=== PATIENT | female | born 1975 | race Caucasian/White ===

== ENCOUNTER 2018-11-14 17:53 | Emergency (ER) | payer BC, SELFPAY ==
[2018-11-14 17:56] VITALS: PULSE 88; RESP 18; TEMP 36.5; O2SAT 100
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
--- NOTE | 2018-11-14 18:08 | ED.GENADUL_ITS ---
Discharge Plan Disposition Patient Disposition: HOME Condition: Stable Discharge Details Chief Complaint: Orthopedic Clinical Impression: Closed fracture of phalanx of right middle finger Primary Care Provider: Luana Vasquez ED Provider: Bro Carias Home Meds and New Rx's Prescriptions: No Action ibuprofen [Advil] 200 mg Tablet 400 mg PO QID PRNRF: 0 Discharge Instructions Instructions: Finger Fracture (ED) Additional Instructions: call orthopedics in the morning for an appointment you can take 1000mg tylenol and 600mg ibuprofen every 6 hours for pain as needed Referrals: Cale Brysno MD [ [facility] STAFF PHYSICIAN] - Medical Decision Making 43 yo female comes in with right middle finger pain after she was tossing wood yesterday morning she was full swing when her right middle finger was crushed between a log and house. No fall or oher injury. Still has distal right finger pain so came here. No wrist pain even on palpation and rom and has full rom of all fingers in extension and flexion even in middle fingers. Suspect contusion, will xray to eval for fx xray on my read shows distal finger fx, if vrad agrees will place in splint and have her f/u with ortho Differential Diagnosis contusion, sprain, fx Imaging Data Radiologic Study: Attestation: I personally reviewed and interpreted this imaging study as follows: Imaging: X-Ray My impression: distal fx HPI General Mode of arrival: ambulatory . Date/Time Provider Initiated Documentation: 11/14/18 17:54 . Limitations to Documentation: no limitations . Information obtained by: patient . History of Present Illness 43 year old F presents to the emergency department with the chief complaint of right middle finger pain, described as moderate, with intensity rated at 4. Quality is described as aching, and is localized to the right and upper extremity. Patient reports no radiation. Patient started experiencing this day(s) (1) and it has been constant. No relieving factors improve symptom(s), Other factors that worsen symptoms (palpation) . Patient notes no other symptoms.. Patient did receive the following treatments prior to arrival, NSAID Related Data Home Medications Medication Instructions Recorded Confirmed ibuprofen [Advil] 400 mg PO QID PRN 11/14/18 11/14/18 Allergies Allergy/AdvReac Type Severity Reaction Status Date / Time No Known Allergies Allergy Unverified 11/14/18 18:05 Review of Systems Review of Systems All systems reviewed & are unremarkable except as noted in HPI and below Constitutional Denies chills, Denies fever(s) and Denies weakness ENT Denies change in voice Cardiovascular Denies chest pain and Denies dyspnea Respiratory Denies dyspnea Gastrointestinal Denies abdominal pain, Denies nausea and Denies vomiting Musculoskeletal Denies joint swelling Neurologic Denies weakness [facility] Medical History Acute pelvic pain Tobacco use disorder Surgical History section Ligation of fallopian tube Social History Smoking/Tobacco Use Status: Current every day Exam Const General: no acute distress Orientation: alert HENMT Head: normal to inspection Ears: external ears normal General nose exam: external nose normal Mouth: moist mucous membranes Eyes General: appearance normal, both eyes and all related structures Neck Neck: normal visual inspection Resp Effort & Inspection: normal respiratory effort and able to speak in complete sentences Cardio Rate: regular rate Skin General skin exam: no rashes or lesions noted Neuro General: alert and oriented x3 Extrem General: full ROM and normal capillary refill Psych Mental Status: mental status grossly normal
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
--- NOTE | 2018-11-14 18:35 | NUR.NOTE ---
patient fitted with aluminum finger splint Nursing Note:
== END 2018-11-14 18:40 | disposition home or self-care (01) ==
LOC: ER 18:38
PROVIDERS: Emergency Provider Emergency Medicine
DX: S62.662A Nondisplaced fracture of distal phalanx of right middle finger, initial encounter for closed fracture (principal); W23.0XXA Caught, crushed, jammed, or pinched between moving objects, initial encounter
CPT/HCPCS: 26750; 73140

== ENCOUNTER 2019-01-20 10:14 | Emergency (ER) | payer BC, SELFPAY ==
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
== END 2019-01-20 12:14 | disposition home or self-care (01) ==
PROVIDERS: Emergency Provider Physician Assistant
DX: S61.215A Laceration without foreign body of left ring finger without damage to nail, initial encounter (principal); W26.8XXA Contact with other sharp object(s), not elsewhere classified, initial encounter
CPT/HCPCS: 12002; 90471

== ENCOUNTER 2021-12-21 15:46 | Outpatient (REF) | payer MEDICAID, SELFPAY ==
--- NOTE | 2021-12-21 15:30 | PAPFT_PTH ---
PATIENT: Fátima Montelongo LOC: NCN #:[id number] AGE/SX: 46/F ROOM: RE12/21/[address]: Lisa Jewell : 1975 BED: DIS: 12/21/2021 SPEC #: [id number] RECD: 12/22/21 12:45 STATUS: BROCK REQ #: [id number] LEILA: 12/21/21 15:[address]: Lisa Jewell DEPT: [facility] Cytology RECD BY: Janie Lopez ENTERED: 12/22/21 12:45 SP TYPE: PAPFT OTHR DR: Luana Vasquez Tissues: 1 - CX/ENDOCX FOR PAP SMEARS Procedures: PAP THIN PREP/UVM Screening HPV DNA PROBE Comments: [id number] (CHLAMYDIA/GC)
[2021-12-21 20:59] LABS: Calculated LDL 111 mg/dL (<100); Cholesterol 223 mg/dL (<200); HDL Cholesterol 96 mg/dL (40-60); Triglyceride 83 mg/dL (<150)
[2021-12-22 18:29] LABS: HIV-1/2 Ag & Ab Screen Negative (Negative)
[2021-12-23 15:01] LABS: Chlamydia Result Negative (Negative); GC Result Negative (Negative)
== END 2021-12-21 15:47 | disposition home or self-care (01) ==
LOC: NCHCN 15:46
PROVIDERS: Visit Provider Registered Nurse
DX: Z11.4 Encounter for screening for human immunodeficiency virus [HIV] (principal); Z13.220 Encounter for screening for lipoid disorders; Z12.4 Encounter for screening for malignant neoplasm of cervix; Z11.51 Encounter for screening for human papillomavirus (HPV)
CPT/HCPCS: 80061; 87389; 87491; 87591; 88142; 87624

== ENCOUNTER 2025-01-24 04:13 | Emergency (ER) | payer MEDICAID, SELFPAY ==
[2025-01-24] VITALS (45 sets, daily range): BP systolic 106–126; BP diastolic 64–86; PULSE 65–91; RESP 11–24; TEMP 36.8; O2SAT 95–100
--- NOTE | 2025-01-24 04:00 | RT.EKG_ITS ---
APPROVED REPORT Exam: Resting ECG Reason for Exam: chest pain Patient Location: E HR:73 bpm ECG Measurements Heart Rate 73 AXIS SD 173 P -4 QRSd 70 QRS 75 QT 398 T 63 QTc 438 Conclusion Sinus rhythm...normal P axis, V-rate 60- 99 Normal Electrocardiogram
--- NOTE | 2025-01-24 04:12 | ED.GENADUL_ITS ---
Discharge Plan Discharge Details Chief Complaint: Chest Pain Clinical Impression: RUQ abdominal pain Primary Care Provider: Unknown,Unknown ED Provider: Santos Pepe and New Rx's Prescriptions: No Action ibuprofen [Advil] 200 mg Tablet 400 mg PO QID PRN [facility] General Mode of arrival: EMS . Date/Time Provider Initiated Documentation: 01/24/25 04:18 . Limitations to Documentation: no limitations . Information obtained by: patient and RN notes reviewed . HPI Narrative: Patient presents to ED after waking up with abdominal discomfort. She does not really describe it as pain or nausea. She got up to go to the bathroom and had a small bowel movement but did not really feel better. As she was walking around she felt worse and then did develop some real pain and difficulty taking a breath because of pain. Never really felt short of breath. Began to feel tightness across her upper abdomen and into her chest. No real back pain. Never developed nausea or vomiting. Recently getting over flulike illness with just residual cough. She vapes and has a history of smoking but no significant past medical history and no family history of cardiac disease at a young age. She has no leg pain or leg swelling. She is on no medications on a regular basis. Related Data Home Medications ?Medication ?Instructions ?Recorded ?Confirmed ibuprofen 200 mg tablet (Advil) 400 mg PO QID PRN 11/14/18 01/24/25 Allergies Allergy/AdvReac Type Severity Reaction Status Date / Time No Known Allergies Allergy Unverified 01/24/25 04:18 General PENG: 4 Exam Narrative Exam Narrative: Const: WDWN female in NAD. VS per triage. HEENT: NC/AT. Normal facial exam. Neck: Supple. Trachea midline. Lungs: Normal respiratory effort. Lungs are clear. Cor: RRR without murmur. Good radial pulses. GI: Soft/ND. Some tenderness and voluntary guarding in RUQ. No Cabrera's Neuro: A+O x 3. Normal speech, mentation, gait. Cranial nerves II - XII grossly intact. No gross motor or sensory deficit. Ext: No C/C/E. Medical Decision Making Patient presenting to ED with upper abdominal discomfort with some chest tightness. She is tender in the right upper quadrant and her presentation is more consistent with gallbladder disease than cardiac. Her EKG is normal per my read. This could be atypical presentation for cardiac so will check troponin. History not consistent with PE, she is low risk and subsequently PERCs out. No need for chest imaging. Will reevaluate after laboratory studies have returned and decide whether right upper quadrant ultrasound is necessary. Patient's laboratory studies are reassuring. Her white count is normal. Chemistries, liver function, lipase are normal. Initial troponin less than 4 repeat is 8. Will plan a 3-hour troponin but again this does not seem cardiac. On repeat abdominal exam continues to have right upper quadrant tenderness with some voluntary guarding and now an equivocal Cabrera sign. Patient complaining of some increased nausea. Will give IV ondansetron. Will order right upper quadrant ultrasound to evaluate for potential acute cholecystitis. Patient will be signed out to oncoming ED physician this morning. Lab Data Lab results reviewed: Yes I reviewed the patient's lab results. Lab results narrative: see MDM ECG Data Attestation: I personally reviewed and interpreted this ECG (s) as follows: PFSH All Active Problems RUQ abdominal pain (Acute) Tobacco use (Acute 11/21/13) Medical History Raynauds disease Surgical History Ligation of fallopian tube 2011 BTL at time of C/S section Social History Smoking/Tobacco Use Status: Current every day Tobacco Type: e-cigarettes Smoking risk assessment performed?: Yes Alcohol Intake: current Alcohol Intake frequency: a few times a month Drug use: Rarely Substance use type: does not use Do you feel safe in your relationship?: Yes
[2025-01-24 04:33] LABS: Absolute Basophil Count 0.06 10^3/uL (0.0-0.2); Absolute Eosinophil Count 0.18 10^3/uL (0.0-0.7); Absolute Lymphocyte Count 2.51 10^3/uL (1.2-3.4); Absolute Neutrophil Count 3.41 10^3/uL (1.2-6.7); Basophils % 0.9 %; Eosinophils % 2.6 %; HCT 40.2 % (36.0-46.0); HGB 12.9 g/dL (11.2-15.7); Immature Grans % 1.5 %; Lymphocytes % 36.6 %; MCH 28.4 pg (27.0-33.0); MCHC 32.1 % (32.0-36.0); MCV 88 fL (80-95); MPV 8.3 fL (8.0-11.0); Monocytes % 8.7 %; Neutrophils % 49.7 %; Platelet Count 433 10^3/uL (130-400); RBC 4.55 10^6/uL (3.93-5.22); RDW 11.8 % (11.7-14.6); WBC 6.86 10^3/uL (4.4-10.8)
[2025-01-24] MEDS: Ketorolac 30 MG/ML VIAL IVP (04:39)
[2025-01-24 04:50] LABS: ALT 22 U/L (14-59); AST 24 U/L (15-37); Albumin 3.3 g/dL (3.4-5.0); Alkaline Phosphatase 107 U/L (46-116); Anion Gap 5.2 mmol/L (3-11); BUN 14 mg/dL (7-18); Bilirubin, Total 0.17 mg/dL (0.2-1.0); CO2 28.8 mmol/L (21.0-32.0); CREATININE 0.9 mg/dL (0.55-1.02); Calcium 9.3 mg/dL (8.5-10.1); Chloride 106 mmol/L (98-107); Estimated GFR 79.35 (mL/min/1.73m2); Glucose 96 mg/dL (74-106); Lipase 49 U/L (<78); Magnesium 1.8 mg/dL (1.8-2.4); Potassium 3.7 mmol/L (3.5-5.1); Sodium 140 mmol/L (136-145); Total Protein 8.1 g/dL (6.4-8.2)
[2025-01-24 04:54] LABS: Troponin I < 4 ng/L (<or=51)
[2025-01-24 06:00] LABS: Troponin I 8 ng/L (<or=51)
--- NOTE | 2025-01-24 06:15 | DI.US_ITS ---
Exam(s) US ABDOMEN EXAM: US ABDOMEN CLINICAL HISTORY: RUQ pain/tenderness TECHNIQUE: Ultrasound abdomen performed using standard protocol. COMPARISON: No exams were available for comparison FINDINGS: LIVER: Normal size and echogenicity. No focal liver lesions are seen. GALLBLADDER: No evidence of cholelithiasis. Question of a small amount of sludge versus artifact. N o evidence of wall thickening. No pericholecystic fluid identified. EVANS'S SIGN: Negative. BILIARY SYSTEM: No intrahepatic or extrahepatic biliary ductal dilation. KIDNEYS: Kidneys are symmetric in size. No evidence of renal calculi. No evidence of hydronephrosis. Question of a parapelvic cyst versus prominent renal pelvis of the left kidney. Left kidney is somew hat obscured by bowel gas. PANCREAS: Normal where visualized. SPLEEN: Not enlarged. ABDOMINAL AORTA AND IVC: Visualized portions normal caliber. ASCITES: None seen. IMPRESSION: Question of a small amount gallbladder sludge versus artifact. No gallbladder wall thickening or per icholecystic fluid. No biliary dilatation. DATA REPOSITORY:
--- NOTE | 2025-01-24 07:09 | W.EDPROG ---
Date of service: 01/24/25 Time of Service: 07:10 Medical Decision Making I received signout on this 49-year-old female who presented with abdominal discomfort. She is pending a third troponin and right upper quadrant ultrasound this morning. 10:28 AM Patient had reassuring troponins in the ED. She had a formal right abdominal ultrasound which did not show any signs of acute cholecystitis. She did have a left renal cyst. I advised her of this cyst and recommended PCP follow-up. We discussed that she should return to the emergency department if she could not eat or drink she developed fevers worsening abdominal pain or had any other concerns. She understood her return indications and is discharged with empiric trial of expectant outpatient management. Final read on the ultrasound showed that the left kidney has either a small simple parapelvic cyst or a prominent renal pelvis. Patient did also have some nodularity to the contour of her liver noted on ultrasound. She had normal reassuring LFTs. She had normal lipase. Quality:SDOH Health Related Social Needs: No Data to Display Discharge Plan Disposition Patient Disposition: Home Discharge Details Clinical Impression: RUQ abdominal pain Primary Care Provider: Unknown,Unknown ED Provider: Win Ambrose Home Meds and New Rx's Prescriptions: Continued ibuprofen [Advil] 200 mg Tablet 400 mg PO QID PRN Discharge Instructions Additional Instructions: You are seen in the emergency department for your abdominal pain. Your ultrasound showed no sign of an infection in your gallbladder. There was concerns that you had a cyst on your left kidney. Please follow-up with your primary care provider concerning this incidental finding. Please return to the emergency department as we discussed if you develop nausea vomiting worsening abdominal pain or if you have any other concerns.
[2025-01-24 07:46] LABS: Troponin I < 4 ng/L (<or=51)
--- NOTE | 2025-01-24 11:41 | DI.VRAD_ITS ---
PROCEDURE INFORMATION: Exam: US Abdomen Complete Exam date and time: 01/24/2025 10:06 AM Age: 49 years old Clinical indication: Other: Ruq/epigastric abd pain TECHNIQUE: Imaging protocol: Real-time ultrasound of the abdomen with image documentation. Complete exam. COMPARISON: No relevant prior studies available. FINDINGS: Liver: Questionable nodular liver contour. Normal echogenicity. The liver measures 17.4 cm in length. No mass identified. Patent main portal vein with normal flow direction. Gallbladder: Artifact versus gallbladder sludge. No gallbladder wall thickening or pericholecystic fluid. Sonographic Cabrera's sign is negative. Biliary ducts: Normal. No stones. No dilation. Pancreas: Visualized pancreas is unremarkable. Right kidney: The right kidney measures 9.5 cm in length. Normal cortical echogenicity. No hydronephrosis. No shadowing stones or mass identified. Left kidney: The left kidney measures 9.5 cm in length. Normal cortical echogenicity. Small simple parapelvic cyst versus prominent renal pelvis with assessment limited by overlying shadowing bowel gas. No shadowing stones identified. Spleen: Normal. No splenomegaly. Aorta: Normal. No aneurysm. Inferior vena cava: Normal. IMPRESSION: 1. No acute findings. 2. Questionable nodular liver contour which could be artifactual or reflect changes of cirrhosis. Dictated and Authenticated by: Horace Nguyễn MD. Orderin Afshin Graham MD
== END 2025-01-24 11:37 | disposition home or self-care (01) ==
PROVIDERS: Emergency Medicine; Emergency Provider Emergency Medicine
DX: R10.11 Right upper quadrant pain (principal); N28.1 Cyst of kidney, acquired
CPT/HCPCS: 00123; 36415; 80053; 81025; 83690; 93005; 96374; 99285; 76700; 83735; 84484; 85025; 93010; 99283; J1885

== ENCOUNTER 2025-04-24 14:07 | Outpatient (REF) | payer MEDICAID, SELFPAY ==
[2025-04-24 15:27] LABS: HCT 41.2 % (36.0-46.0); HGB 13.1 g/dL (11.2-15.7); MCH 28.2 pg (27.0-33.0); MCHC 31.8 % (32.0-36.0); MCV 89 fL (80-95); MPV 9.9 fL (8.0-11.0); Platelet Count 244 10^3/uL (130-400); RBC 4.65 10^6/uL (3.93-5.22); RDW 12.6 % (11.7-14.6); RDW-SD 40.6 fL
[2025-04-24 15:57] LABS: Iron 61 ug/dL (50-170)
[2025-04-24 16:09] LABS: ALT 24 U/L (14-59); AST 28 U/L (15-37); Albumin 3.9 g/dL (3.4-5.0); Alkaline Phosphatase 87 U/L (46-116); Anion Gap 5.5 mmol/L (3-11); BUN 12 mg/dL (7-18); Bilirubin, Total 0.2 mg/dL (0.2-1.0); CO2 30.5 mmol/L (21.0-32.0); CREATININE 0.6 mg/dL (0.55-1.02); Calcium 9.3 mg/dL (8.5-10.1); Calculated LDL 114 mg/dL (<100); Chloride 102 mmol/L (98-107); Cholesterol 201 mg/dL (<200); Estimated GFR 111.34 (mL/min/1.73m2); Glucose 92 mg/dL (74-106); HDL Cholesterol 74 mg/dL (>or=50); Potassium 4.4 mmol/L (3.5-5.1); Sodium 138 mmol/L (136-145); TSH 2.23 uIU/mL (0.36-3.74); Total Protein 8.7 g/dL (6.4-8.2); Triglyceride 69 mg/dL (<150)
[2025-04-24 16:40] LABS: FREE T4 0.93 ng/dL (0.76-1.46)
== END 2025-04-24 14:08 | disposition home or self-care (01) ==
LOC: NCHCN 14:07
PROVIDERS: PCP Physician Assistant; Visit Provider Physician Assistant
DX: R53.83 Other fatigue (principal)
CPT/HCPCS: 80053; 80061; 85027; 83540; 84439; 84443

== ENCOUNTER 2025-08-21 06:48 | Day surgery (SDC) | payer MEDICAID, SELFPAY ==
--- NOTE | 2025-08-20 15:49 | PDOC.DSDIS_ITS ---
Date of service: 08/21/25 Discharge Plan Disposition Patient Disposition: Home Condition: Good Discharge Details Reason For Visit: Screening colonoscopy Attending Provider: Amadou Reid Primary Care Provider: Alfredo Grier Home Meds and New Rx's Prescriptions: Continued multivitamin Tablet 1 tab PO DAILY Discontinued bisacodyl [Dulcolax (bisacodyl)] 5 mg tablet,delayed release (DR/EC) 5 mg PO ONCE Qty: 4 0RF Rx Instructions: Take per colonoscopy instructions provided by ordering providers office polyethylene glycol 3350 17 gram/dose powder 17 g PO ONCE Qty: 238 0RF Rx Instructions: Take per colonoscopy instructions provided by ordering providers office Discharge Instructions Instructions: Colon polyps Additional Instructions: Fátima, was great meeting you today, and hope you feel well after the procedure. Things went very smoothly. I did find, and remove 1 small bit of tissue today that I suspect may be a polyp. This will be sent to the pathologist for them to review. 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 Otherwise everything else was normal. The results from the polyp report will take about a week or 2 to get back, but once my office has that information we will be in touch. If you need anything in the meantime, please do not hesitate to ask at any point. 1. If tolerated, consume a soft, low fiber diet for 1-2 days. 2. Do not drive, drink alcohol, operate machinery, make critical decisions, or do activities that require coordination or balance for 24 hours. 3. Because air was put into your colon during the procedure, expelling air from your rectum (passing gas or farting) is normal. 4. You may not have a bowel movement for 1-3 days because of the colonoscopy prep. This is normal. 5. Go directly to the emergency room if you notice any of the following: Develop chills (warm to touch), or if you have a thermometer and your temperature is above 101 Difficulty breathing or difficultly swallowing Persistent vomiting Severe abdominal pain, other than gas cramps Severe chest pain Black, tarry stools Any bleeding ? exceeding one tablespoon 6. Call your physician if the site where your intravenous was started becomes red, swollen, painful, and warm to touch. 7. Your physician has reviewed your pre-procedure medications. Please continue to take those medications as previously ordered. You will be given specific information/education regarding any changes to your medications before leaving. Stand Alone Forms: Anesthesia Discharge Inst., Colonoscopy Post Instructions, Magda Ford (DSU) Activity:: Activity as Tolerated Diet:: As Tolerated Discharge Orders Discharge Orders: Discharge Order (Routine); Ordered 08/20/25 Ordered By: Amadou Reid DS: Diagnosis Discharge Diagnosis (1) Encounter for screening colonoscopy: Status: Acute Asessment and Plan: Follow-up on polypectomy results
--- NOTE | 2025-08-20 15:50 | COLE_ITS ---
Date of service: 08/21/25 Time of Service: 08:41 Colonoscopy Report Date of procedure: 08/21/25 Pre-op diagnosis general: Screening colonoscopy Post-op diagnosis procedure note: other (Cecal polyp) Procedure: Colonoscopy with polypectomy Surgeon: Amadou Reid Anesthesia Type: General:No Airway Estimated blood loss (mL): 5 Pathology: other (0.25 cm flat cecal polyp) Complications: None Disposition: same day Indications: Fátima is a 50-year-old woman who needs a screening colonoscopy Prep: Miralax/Dulcolax Procedure Start Time: 08:20 Procedure End Time: 08:34 Retraction Time: 8 Findings: 0.25 cm flat cecal polyp Procedure Description: After the induction of monitored anesthetic care, and with the patient in left lateral decubitus position, I began by performing an external anorectal exam.? There are some perianal skin tags consistent with old hemorrhoids. Otherwise, the perineum and anal verge were normal. Next, I performed a digital rectal exam.? I did not appreciate any abnormal findings.? Next, I advanced a colono scope into the rectal vault.? I performed retroflexion.? This appeared normal.? Using irrigation, I then advanced the colonoscope beyond the rectal folds and into the sigmoid colon before advancing towards the cecum.? The quality of the prep was excellent.? The scope was noted to be in the cecum by identification of the ileocecal valve and appendiceal orifice. Just a few millimeters away from the appendiceal orifice was a small bit of raised tissue consistent with a polyp. Cold snare polypectomy was performed, and excision was complete. I then began withdrawing the colonoscope using repeated irrigation as necessary for full evaluation of the colonic mucosa. ?Once the scope was withdrawn to the level of the rectum, great care was taken to examine portions of the rectal folds.? Aside from the cecal polyp, everything else appeared normal. Finally, the scope was withdrawn and the patient was brought to the same-day surgery recovery unit as the anesthetic wore off. ?The findings and instructions were shared with the patient prior to discharge. [place] Bowel Prep [place] Bowel Prep Right Colon: 3 Left Colon: 3 Transverse Colon: 3 Total Score: 9
[2025-08-21 07:11] VITALS: BP 100/75; PULSE 87; RESP 16; TEMP 36.6; O2SAT 100
[2025-08-21] MEDS: Lactated Ringers 1,000 ML 80 ML IV (07:34)
--- NOTE | 2025-08-21 08:04 | W.ANESPRE ---
General Info Date of Service Date Performed: 08/21/25 Height: 4 ft 11 in Weight: 56.3 kg Body Mass Index (BMI): 25.0 Surgical Procedure: Operation Date: 08/21/25 08:20 Proposed Procedure Side Surgeon p Hieu Reid MD Meds Allergies and Home Medications Allergies Allergy/AdvReac Type Severity Reaction Status Date / Time No Known Allergies Allergy Unverified 08/21/25 07:03 Home Medication ?Medication ?Instructions ?Recorded multivitamin 1 tab PO DAILY 04/28/25 Current Visit Medications: Current Medications Generic Name Dose Route Start Last Admin Trade Name Freq PRN Reason Stop Dose Admin Ringer's Solution 1,000 mls @ 80 mls/hr 08/21/25 06:00 08/21/25 07:34 IV 08/21/25 23:59 80 mls/hr INFUSION CONCHIS Administration IV Miscellaneous Supplies 1 each 08/21/25 06:00 Iv Access IV 08/21/25 23:59 DIRECTED CONCHIS Sodium Chloride 0 ml 08/21/25 06:00 Normal Saline Flush 10 Ml Syr IV 08/21/25 23:59 PRN PRN Sodium Chloride 0 ml 08/21/25 06:00 Normal Saline 10 Ml Vial IJ 08/21/25 23:59 DIRECTED PRN Sterile Water 0 ml 08/21/25 06:00 Water,Injection,Sterile 10 Ml Vial IJ 08/21/25 23:59 DIRECTED PRN PFSH Active Problems Active Problems: Problem Status Onset Code Encounter for screening colonoscopy Acute Z12.11 Nicotine dependence Acute F17.200 Tobacco use Acute 11/21/13 Z72.0 Medical History Medical History Raynauds disease Surgical History Surgical History Ligation of fallopian tube 2011 BTL at time of C/S section Tobacco Smoking/Tobacco Use Status: Current every day Tobacco Type: e-cigarettes Passive smoking exposure: No Alcohol Alcohol Intake: current Alcohol intake frequency: a few times a week Alcohol type: beer Substance Use Substance use: Rarely Substance use type: does not use Vital Signs and Lab Results Vital Signs Most Recent Vital Signs in EMR: Most Recent Vital Signs Temp Pulse Resp BP Pulse Ox 36.6 C 87 16 100/75 100 08/21/25 07:11 08/21/25 07:11 08/21/25 07:11 08/21/25 07:11 08/21/25 07:11 Anesthesia Assessment and Plan Anesthesia History Personal History: No History of Anesthesia Complications Family History: No Family History of Anesthesia Complications Exercise Tolerance Exercise Tolerance: Metabolic Equivalents>4 Pertinent Negatives Pertinent Negatives: No Symptoms of GERD Cardiac & Pulmonary Exam Cardiac Exam: Normal S1/S2 Heart Sounds Pulmonary Exam: Clear Bilateral Breath Sounds Implantable Cardiac Device Does patient have a Pacemaker or an ICD?: No Airway Exam Known Difficult Airway: No Mallampati Class: 2 Mouth Opening: Normal (> 3cm) Thyromental Distance: Greater than 3 cm Neck Range of Motion: Full ROM Neck Circumference: Normal Teeth Condition: Normal Dentition ASA Classification ASA Score: ASA 2 Emergency Case?: No NPO Status NPO Status: NPO Clears >2 hours, Solids >8 hours Status Status: Not Relevant due to Medical History Anesthesia Plan Resuscitation Status: Full Code Anesthesia Technique: General Anesthesia Airway Planned: Natural Airway Monitors Used: Standard Monitors
[2025-08-21 08:07] VITALS: BMI 25.0
--- NOTE | 2025-08-21 08:29 | BOWEL_PTH ---
PATIENT: Fátima Montelongo LOC: [facility] U#:[id number] AGE/SX: 50/F ROOM: RE08/21/[address]: Amadou Reid MD : 1975 BED: DIS: 08/21/2025 SPEC #: [id number] RECD: 08/21/25 12:32 STATUS: BROCK RE #: [id number] LEILA: 08/21/25 08:[address]: Amadou Reid DEPT: Surgical Specimen RECD BY: Janie Lopez ENTERED: 08/21/25 12:33 SP TYPE: Bowel OTHR DR: SHERIF Boggs Tissues: 1 - BIOPSY BOWEL Procedures: GROSS AND MICRO LEVEL 4 Comments: [id number]
[2025-08-21 08:39] VITALS: BP 98/64; PULSE 78; RESP 16; TEMP 36.3; O2SAT 99
--- NOTE | 2025-08-21 08:44 | W.ANESPOSTOP ---
Postoperative Evaluation Date, Time and Location Date Performed: 08/21/25 Time Performed: 08:44 Patient Location: Day Surgery Unit Vital Signs Most Recent Imported Vital Signs: Most Recent Vital Signs Temp Pulse Resp BP Pulse Ox 36.3 C L 78 16 98/64 L 99 08/21/25 08:39 08/21/25 08:39 08/21/25 08:39 08/21/25 08:39 08/21/25 08:39 Pain Score Most Recent Pain Score: Most Recent Pain Score Pain Level 0 08/21/25 08:39 Assessment Mental Status: Awake (Alert & Oriented to Patient Baseline) Airway and Respiratory Function: Patent airway with normal (patient baseline) respiratory exam Cardiovascular Function: Hemodynamically Stable Hydration Status: Adequately Hydrated Nausea & Vomiting: No Nausea or Vomiting Pain: Pt. Denies Any Pain Peripheral Nerve Block: Patient did not receive a nerve block
[2025-08-21 09:06] VITALS: BP 112/71; PULSE 71; RESP 16; TEMP 36.4; O2SAT 100
== END 2025-08-21 09:21 | disposition home or self-care (01) ==
LOC: SUR 06:49
PROVIDERS: PCP Physician Assistant; Visit Provider Surgery
PROC: 0DJD8ZZ Inspection of Lower Intestinal Tract, Via Natural or Artificial Opening Endoscopic (ICD-10-PCS; CPT 45378; principal; 2025-08-21 08:15)
DX: Z12.11 Encounter for screening for malignant neoplasm of colon (principal); D12.0 Benign neoplasm of cecum
CPT/HCPCS: 45385; 88305; J2003; J2704